=== PATIENT | female | born 1980 | race Two or more races ===

== ENCOUNTER 2016-10-19 08:59 | Emergency (ER) | payer SELFPAY ==
[2016-10-19] MEDS ORDERED: predniSONE 20 MG TAB PO ONE (09:31)
[2016-10-19] MEDS ORDERED: ACYCLOVIR 400 MG TAB PO ONE (09:31)
--- NOTE | 2016-10-19 09:32 | CPEKG ---
Heart Rate: 74 RR Interval: 811 P-R Interval: 156 QRSD Interval: 78 QT Interval: 384 QTC Interval: 426 P [place]: 40 QRS [place]: 55 T Wave [place]: 23 EKG Severity - OTHERWISE NORMAL ECG - EKG Impression: SINUS RHYTHM EKG Impression: VENTRICULAR PREMATURE COMPLEX EKG Impression: INTERPOLATED VENTRICULAR PREMATURE COMPLEX Electronically Signed By: Uriel Herrera 19-Oct-2016 09:47:43
[2016-10-19 09:34] LABS: % IMMATURE GRANULYOCYTES 0.3 % (0.0-1.1); ABSOLUTE IMMATURE GRANULOCYTES 0.03 10^3/uL (0.00-0.10); ADD DIFF? NO; ADD MORPH? NO; ADD SCAN? NO; ATYPICAL LYMPHOCYTE FLAG 10 (0-99); FRAGMENT RBC FLAG 0 (0-99); HEMATOCRIT 43.4 % (38.0-47.0); HEMOGLOBIN 14.7 g/dL (12.6-16.3); LEFT SHIFT FLG 0 (0-99); LIPEMIA HEMOLYSIS FLAG 90 (0-99); MEAN CELL HEMOGLOBIN 32.1 pg (27.9-34.1); MEAN CELL HEMOGLOBIN CONCENTR. 33.9 g/dL (32.4-36.7); MEAN CELL VOLUME 94.8 fL (81.5-99.8); MEAN PLATELET VOLUME 9.4 fL (8.7-11.7); PLATELET CLUMPS FLAG 0 (0-99); PLATELET COUNT 317 10^3/uL (150-400); RED BLOOD CELL COUNT 4.58 10^6/uL (4.18-5.33); RED CELL DISTRIBUTION WIDTH 12.1 % (11.5-15.2)
--- NOTE | 2016-10-19 09:34 | EDPHY ---
H & P Stated Complaint: r sided facial paralysis and blurred vision x 1 week/ traveling from [facility] Source: Patient, Family Exam Limitations: No limitations - Personal History LMP (Females 10-55): 22-28 Days Ago Current Tetanus/Diphtheria Vaccine: Yes - Medical/Surgical History Hx Asthma: No Hx Chronic Respiratory Disease: No Hx Diabetes: No Hx Cardiac Disease: No Hx Renal Disease: No Hx Cirrhosis: No Hx Alcoholism: No Hx HIV/AIDS: No Hx Splenectomy or Spleen Trauma: No Other PMH: denies - Social History Smoking Status: Never smoked HPI/ROS: CHIEF COMPLAINT: Right-sided facial weakness and numbness HISTORY OF PRESENT ILLNESS: Complains of sudden onset of right-sided facial weakness, tingling pain. This started Tuesday evening. It has been constant in duration. No worsening since time of onset. Involves the right forehead, right side of the face and into the neck. Associated with some mild neck discomfort immediately preceding this. No chest pain or shortness of breath. No cough or hemoptysis. No abdominal pain. No urinary complaints. She does associated with some discomfort in the right eye and some dryness of the right eye. This has caused her to not want to wear her contact. She has no fever or chills. No neck pain or stiffness. No confusion or slurred speech per family member bedside. No weakness of any of her extremities. No other associated complaints or modifying factors. REVIEW OF SYSTEMS: Ten systems reviewed and are negative unless otherwise noted in the HPI PERTINENT MEDICAL HISTORY: None EXAMINATION General Appearance: Alert, no distress Head: normocephalic, atraumatic Eyes: Pupils equal and round, no conjunctival pallor or injection. EOMs intact. No nystagmus or dysconjugate gaze. ENT, Mouth: Mucous membranes moist. Uvula is midline. No erythema or edema. Neck: Normal inspection, supple, non-tender. No rigidity or meningismus. Respiratory: Lungs are clear to auscultation. No wheezing, rhonchi or crackles. Cardiovascular: Regular rate and rhythm. No murmur. Pulses intact distally. Gastrointestinal: Abdomen is soft and nontender Back: non-tender, no bony abnormalities Neurological: A&Ox4. Cranial nerves 2 through 6, 8-12 are grossly intact. Cranial nerve 7 has deficit in the right forehead and face with mild facial droop. There is paresthesia in the right facial nerve distribution. Strength is 5/5 in all 4 limbs. There is no pronator drift. No dysmetria. No slurred speech, dysarthria. Skin: Warm and dry, no rash. No petechiae or purpura. Extremities: Nontender, no pedal edema Psychiatric: Mood and affect normal DIFFERENTIAL DIAGNOSES: Including but not limited to Coon's palsy, trigeminal neuralgia, stroke MDM: 9:30 a.m. 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 She does partial paralysis the right side of the face including the levator palpebrae superior worse. There is decreased sensation on the facial nerve distribution on the right. She has no other stroke-like symptoms. Her exam is otherwise well within normal limits. Start treatment with prednisone and acyclovir here. 11:00 a.m. X-ray of the chest is unremarkable. Labs are all within normal limits. CT scan of the is pending no change her status to this point. 11:08 a.m. Notified by radiologist Dr. Lewis. CT scan of the head is unremarkable for any acute findings. 11:15 a.m. I have re-evaluated the patient. She is resting comfortably at this time. I have reassured her with the laboratory studies, chest x-ray and CT findings. Discharged home with continued steroid, acyclovir pain medication as needed. Follow up with primary care physician she actually is from [place] and is going back home on Tuesday. She will follow up with her primary care physician and [place]. We had a very long discussion regarding artificial tears and avoiding contact use in the right eye into this resolved with that she avoid corneal abrasion. SUPERVISION: This patient was independently evaluated without direct examination by the attending physician. Case was discussed with attending physician. (John Parr) Constitutional: Initial Vital Signs Temperature (C) 36.9 C 10/19/16 09:04 Heart Rate 88 10/19/16 09:04 Respiratory Rate 16 10/19/16 09:04 Blood Pressure 153/89 H 10/19/16 09:04 O2 Sat (%) 95 10/19/16 09:04 O2 Delivery Mode Room Air Allergies/Adverse Reactions: No Known Allergies Allergy (Unverified 10/19/16 09:04) Home Medications: Medication Instructions Recorded Acyclovir 800 mg PO 5XD #35 tab 10/19/16 Dextran 70/Hypromellose 1 drop OP PRN PRN #1 btl 10/19/16 [Artificial Tears Eye Drops] Hydrocodone/APAP 5/325 [[place] 1 - 2 tab PO Q4H PRN #14 tab 10/19/16 5/325 (*)] predniSONE [Deltasone] 60 mg PO DAILY #12 tablet 10/19/16 Medical Decision Making Other Provider: Evaluated this patient independently. Her symptoms are classic for Coon's palsy. We will treat with steroids and antiviral medications. (Uriel Herrera) - Data Points Laboratory Results: Laboratory Results 10/19/16 09:13 10/19/16 09:13 Medications Given: Discontinued Medications Acyclovir (Acyclovir) 800 mg PO EDNOW ONE Stop: 10/19/16 09:32 Last Admin: 10/19/16 11:08 Dose: 800 mg Prednisone (Prednisone) 60 mg PO EDNOW ONE Stop: 10/19/16 09:32 Last Admin: 10/19/16 10:09 Dose: 60 mg Departure - Departure Disposition: Home, Routine, Self-Care Clinical Impression: Coon's palsy Condition: Good Instructions: Coon Palsy (ED) Additional Instructions: Medications as discussed including steroids for the next 4 days after today. Acyclovir for a total of 10 days. Follow up with primary care physician and ear nose and throat for definitive care. [place] el medicamento selvin fue indicado incluyendo los esteroides por los proximos 4 benavidez despues de hoy. [place] Acyclovir por un total de 10 benavidez. Fije jo ann de seguimiento con dong medico de cabecera y con un especialista de oidos, nariz y garganta para dong cuidado definitivo. Ana la lista de medicos recomendados para seguimiento. [place] medicamentos nuevos son/New med's: Acyclovir 800 miligramos oral karlee veces por senthil. (anti-viral) Hydrocodone/APAP 5/325 miligramos [NORCO] tome 1 a 2 tabletas oral cada 4 horas selvin necesite para dolor. Prednisone [Deltasone] tome 60 miligramos oral diario - inicie el [place] 19 (cada tableta es de 20 miligramos) Dentran 70/Hypromellose (gotas artificiales para los ojos) use toya gota optalmica selvin necesite para inflamacion en dong madhu derecho (para resequedad) Referrals: Cas Mireles MD [Medical Doctor] - As per Instructions Flakita Owens [place] [place] - As per Instructions Valdo Montes De Oca MD [Medical Doctor] - As per Instructions Prescriptions: Acyclovir 800 mg PO 5XD #35 tab Dextran 70/Hypromellose [Artificial Tears Eye Drops] 1 drop OP PRN PRN #1 btl PRN Reason: Inflammation Hydrocodone/APAP 5/325 [[place] 5/325 (*)] 1 - 2 tab PO Q4H PRN #14 tab PRN Reason: Pain, Moderate predniSONE [Deltasone] 60 mg PO DAILY #12 tablet Print Language: Canadian
[2016-10-19 09:46] LABS: ANION GAP 15 mEq/L (8-16); CALCIUM 9.7 mg/dL (8.5-10.4); CARBON DIOXIDE 25 mEq/l (22-31); CHLORIDE 102 mEq/L (97-110); CREATININE 0.7 mg/dL (0.6-1.0); GLOMERULAR FILTRATION RATE > 60; GLUCOSE 109 mg/dL (70-100); POTASSIUM 3.7 mEq/L (3.5-5.2); SODIUM 142 mEq/L (134-144)
[2016-10-19 09:57] LABS: TROPONIN I < 0.012 ng/mL (0-0.034)
[2016-10-19 11:36] VITALS: BP 94/64; PULSE 78; RESP 18; TEMP 98.2; O2SAT 99
== END 2016-10-19 11:37 | disposition home or self-care (01) ==
DX: G51.0 Bell's palsy (principal)